=== PATIENT | female | born 1995 | race Caucasian/White ===

== ENCOUNTER 2018-03-25 12:50 | Inpatient (IN) ==
[2018-03-25] MEDS ORDERED: Famotidine 20 MG/2 ML VIAL IVP PRN (13:06)
[2018-03-25] MEDS ORDERED: Naloxone 0.4 MG/ML INJ IVP PRN (13:06)
[2018-03-25] MEDS ORDERED: *HR* Nalbuphine 10 MG/ML AMPUL IVP PRN (13:06)
[2018-03-25] MEDS ORDERED: Metoclopramide 10 MG/2 ML VIAL IVP PRN (13:07)
[2018-03-25] MEDS ORDERED: Ondansetron 4 MG/2 ML VIAL IVP PRN (13:07)
[2018-03-25] MEDS ORDERED: Ringers Solution, Lactated 1,000 ML IVC SCH (13:15)
[2018-03-25] MEDS ORDERED: miSOPROStol 25 MCG TABLET PO PRN (13:59)
[2018-03-25] MEDS ORDERED: EPHEDrine 50 MG/ML VIAL IVP PRN (14:04)
--- NOTE | 2018-03-25 14:04 | Anesthesia Evaluation PreOp ---
Date of Encounter: 03/25/18 Time of Encounter: 14:01 - Past History Planned Operation: vaginal del, G1 induction Cardiac History: Denies any Significant Hx Pulmonary History: Denies Any Significant HX ACCOUNT MANAGER TRAINEE History: Denies Any Significant HX Other Medical History: GERD, Other (mild scolosis reported, denies radiculopathy ) Anesthesia History: No Prior Anesthetic Complications, Past Anesthesia Alcohol Use: none Drug use: none Medications and Allergies Esomeprazole Magnesium [Nexium 24Hr] 20 mg PO DAILY 03/25/18 [History] 3 Allergy/AdvReac Type Severity Reaction Status Date / Time No Known Allergies Allergy Verified 08/06/16 06:10 Anesthesia Exam - HEENT Pupil (Motor): Pupils equal Mallampati: II Teeth: Normal Oral Opening: Greater than 3 - ACCOUNT MANAGER TRAINEE LOC: Oriented ACCOUNT MANAGER TRAINEE Motor: Normal RUE, Normal LUE, Normal RLE, Normal LLE, Normal Face ACCOUNT MANAGER TRAINEE Sensory: Normal: RUE, LUE, RLE, LLE, Face - Cardiac Rhythm: Regular Murmur: None - Pulmonary Breath Sounds: bilateral Clear Respiratory Effort: Symmetrical Anesthesia Assess/Plan ASA Score: 2 Modified [place] Scale for Level of Consciousness: Cooperative, oriented, and tranquil Anesthetic Plan: General, Regional Monitoring Plan: Standard Monitors Recovery Plan: PACU
[2018-03-25 14:07] LABS: Basophils % 0.4 %; Eosinophils % 0.4 %; Hemoglobin 12.8 g/dL (11.5-15.4); Immature Granulocytes % 0.6 % (0-4); Lymphocytes # 1.6 K/mcL (0.6-4.6); Lymphocytes % 14.9 %; Mean Corpuscular HGB Conc 33.7 g/dL (31.6-35.5); Mean Corpuscular Hemoglobin 28.6 pg (28.0-33.3); Mean Platelet Volume 10.4 fL (9.4-12.4); Monocytes # 0.7 K/mcL (0.0-1.3); Monocytes % 6.5 %; Neutrophils # 8.2 K/mcL (1.6-8.9); Platelet Count 263 K/mcL (140-400); Red Blood Count 4.47 M/mcL (3.82-4.97); Red Cell Distribution Width 13.9 % (11.5-14.5); Segmented Neutrophils % 77.2 %
[2018-03-25] MEDS ORDERED: Epidural Premix (fent/bupiv) 110 ML EP SCH (14:15)
[2018-03-25] MEDS ORDERED: Epidural Premix (fent/bupiv) 110 ML EP ONE (14:17)
[2018-03-25] MEDS ORDERED: Lidocaine -MPF 2% 5 ML VIAL ONE (14:19)
[2018-03-25 14:25] LABS: Amphetamine Screen,Urine Negative ng/mL (Cutoff=1000); Barbiturate Screen,Urine Negative ng/mL (Cutoff=200); Benzodiazepines Screen,Urine Negative ng/mL (Cutoff=200); Cannabinoid Screen,Urine Negative ng/mL (Cutoff = 50); Cocaine Screen,Urine Negative ng/mL (Cutoff= 300); Opiate Screen,Urine Negative ng/mL (Cutoff=300); Phencyclidine Screen,Urine Negative ng/mL (Cutoff=25)
[2018-03-25] MEDS ORDERED: Oxytocin 20 units/ LR 1000 mL 20 UNIT/1,000 ML BAG IVC SCH (15:15)
--- NOTE | 2018-03-25 18:52 | OB/GYN History & Physical ---
Date of Encounter: 03/25/18 Time of Encounter: 18:00 Assessment and Plan (1) 39 weeks gestation of Current visit: Yes Status: Acute (2) Polyhydramnios affecting in third trimester Current visit: Yes Status: Acute Plan for induction of labor with IV pitocin started early this afternoon. Now AROM with clear fluid and IUPC placement. Continue to monitor and increase pitocin as needed in anticipation of vaginal delivery. (3) LGA (large for gestational age) fetus Current visit: Yes Status: Acute History of Present Illness Chief complaint: induction of labor HPI: Ms. Lino is a 22 year old female G1 39 2/7 weeks presents for induction of labor for polyhydramnios at term. She denies any contractions, vaginal bleeding , or leaking fluid prior to admission. She reports good movement. She denies any complications. Past Med Surg Social Fam HX - Past Medical History Source: patient Medical history: other Additional medical history: pnuemonia with chest tubes as a child Psychiatric history: no psych history - Past Surgical History Surgical History: no surgical history - Social History Smoking Status: Never smoker Smokeless Tobacco Status: No Alcohol use: none Drug use: none Occupational status: employed - Family History Mother Living Status: Still Living Hx Family Cardiac Disorders: No Hx Family Respiratory Disorders: Yes (collapsed lung) Hx Family Cancer: No Hx Family GI Disorders: No Hx Family Genitourinary Disorders: No Hx Family Endocrine Disorder: No Hx Family Musculoskeletal Disorders: No Hx Family Neuromuscular Disorders: No Hx Family Neurologic Disorders: No Hx Family HEENT Disorders: No Hx Family Autoimmune Disorders: No Hx Family Reproductive Disorders: Yes (hysterectomy) Hx Family Psychosocial Disorders: No Hx Family Medical Disorders: No Obstetrical History - Pregnancies : 1 Medications and Allergies Esomeprazole Magnesium [Nexium 24Hr] 20 mg PO DAILY 03/25/18 [History] 3 Allergy/AdvReac Type Severity Reaction Status Date / Time No Known Allergies Allergy Verified 08/06/16 06:10 Review of System OB All systems PM: reviewed and no additional remarkable complaints except as stated - Constitutional Constitutional ROS IM: no fever(s), no headache(s) - Cardiovascular Cardiovascular: no chest pain at rest, no orthopnea - Respiratory Respiratory: no dyspnea, no wheezing - Gastrointestinal Gastrointestinal: constipation, heartburn, no nausea - Menstruation Menstruation: amenorrhea Exam - Constitutional Constitutional: well developed, well nourished, no acute distress, average body habitus - Neck Neck exam: full ROM - Lungs Respiratory exam: CTAB - Cardiovascular Cardiovascular exam: RRR - Abdomen Abdomen: Present: bowel sounds normal, gravid, non tender - Vulva Vulva: bilateral: normal - Vagina Vagina: Present: normal moisture - Cervix Dilation: 4 Effacement: 75 Station: -3 - Comments Comments: AROM with clear fluid. IUPC placed without difficulty FHT's 130's, category 1, scalp stim noted with exam. [place] ctx q 1-2 minutes Results Result Diagrams: 03/25/18 13:47 All other labs normal. US - abdomen: image reviewed (Ultrasound on 03/18 with EFW 3839 gm and JAIME 26.89 cm cephalic) - VTE Reasons for not Prescribing Prophylaxis: Treatment not Indicated - Low risk for VTE
[2018-03-25] MEDS ORDERED: Mag Hydrox/Al Hydrox/Simeth 30 ML UDC PO PRN (20:32)
--- NOTE | 2018-03-25 22:05 | Anesthesia Procedures ---
Date of Encounter: 03/25/18 Time of Encounter: 21:49 Procedures: Anesthesia - Epidural/Spinal Patient ID/Chart reviewed: Yes Patient examined: Yes OB Eval: Gestational age: term OB Eval: : 1 OB Eval: Contractions: Non-stressed pattern Consent Obtained: Yes Supplemental Oxygen: None/Room Air Site Prep: Aseptic Technique, Sterile prep and drape, 0.5% Chlorhexidine/Alcohol Patient position: upright Local Anesthetic: Lidocaine 1% Amount of Local Anesthetic used: 2 Touhy Needle Gauge: 18 Touhy Needle Depth (cm): 7 Catheter Depth at Skin (cm): 11 Test Dose (1.5% Lido + Epi): Volume given (mls): 3 Test Dose Result: Negative Loading Dose: Other: 12ml from solution Loading Dose Administered: Thru Catheter Infusion Med: 0.125% Bupivacaine w/ 2 mcg/ml Fentanyl Infusion Rate (mls/hr): [address]: Tegaderm, Tape Interspace Used: L3-L4 Loss of Resistance (IRIS): Yes (saline) Blood: No CSF: No Paresthesia: No Procedure: vss though out procedure, fhr via rn's stable
[2018-03-26] MEDS ORDERED: Oxytocin 20 units/ LR 1000 mL 20 UNIT/1,000 ML BAG IVC ONE (14:46)
[2018-03-26] MEDS ORDERED: Rho Immune Globulin 1,500 UNIT SYRINGE IM PRN ×2 (14:46→15:42)
[2018-03-26] MEDS ORDERED: Measles/Mumps/Rubella Vacc 0.5 ML VIAL SQ PRN ×2 (14:46→15:42)
[2018-03-26] MEDS ORDERED: Acetaminophen 325 MG TABLET PO PRN ×2 (14:46→15:42)
--- NOTE | 2018-03-26 14:56 | OB/GYN Procedure Note ---
Delivery - Delivery Date: 03/26/18 Provider: Everardo Livingston Intrapartum events: prolonged 2nd stage>2.5hr Delivery induction: AROM, oxytocin Delivery monitor: external FHT, external uterine Anesthesia: epidural Quantitated Blood Loss: 250 - (s) Infant A Infant Delivery Date: 03/26/18 Infant Delivery Time: 13:23 Presentation: vertex Position: JOEL Route of delivery: vacuum extraction Gender: Female Viability: Viable Pounds: 8 Ounces: 7 at 1 minute: 7 at 5 mins: 9 Shoulder Dystocia: not encountered Specimens collected: cord blood Placenta: spontaneous Cord: 3 umbilical vessels - Repair Episiotomy: none Laceration Description: Perineal - 3rd Degree - Complications Delivery complications: none - Disposition Mom disposition: stable in LDR [place] disposition: stable in LDR - Comments Comments: Patient progressed to complete dilatation and +3 station begin having deep variable decelerations that were prolonged she was also developing some tachycardia that she did have kidney [id number] variability. We did discuss with patient options of vacuum application with associated risks of infection, damage to scalp, hematoma formation and vaginal wall trauma versus proceeding with primary section. Patient strongly desires not desire section and did agree to vacuum application. Visible consent was obtained. Packing was applied a total of 2 times and infant was delivered from left occiput anterior presentation peritoneum application strength was 550 mmHg and total vacuum application time was 52 seconds. Infant was delivered from left occiput anterior presentation without difficulty. There was a nuchal cord 1 which was reduced during delivery. Cord was clamped and cut and infant was handed nurse personnel who were in attendance on patient's abdomen. Placenta was delivered spontaneously without difficulty. There was a social third degree laceration repaired with 2-0 and 3-0 Vicryl under epidural anesthesia.terms of third-degree laceration there was actually minimal tearing of the capsule of the muscle. Blood loss was 100 cc, mother and recovered in labor and delivery .
[2018-03-26] MEDS ORDERED: Oxytocin 20 units/ LR 1000 mL 20 UNIT/1,000 ML BAG IVC SCH ×2 (15:00→15:42)
[2018-03-26] MEDS ORDERED: *HR* HYDROcodone/Acet 5/325 mg TABLET PO PRN (17:14)
[2018-03-26] MEDS: Ibuprofen 600 MG TABLET PO PRN (17:24)
[2018-03-26] MEDS ORDERED: Benzocaine/Menthol 56 GM AEROSOL SPRAY TP PRN (21:07)
[2018-03-27 06:44] LABS: Basophils # 0.1 K/mcL (0.0-0.2); Basophils % 0.3 %; Eosinophils # 0.1 K/mcL (0.0-0.6); Eosinophils % 0.6 %; Hematocrit 24.8 % (35.3-44.9); Immature Granulocytes % 0.7 % (0-4); Lymphocytes # 2.3 K/mcL (0.6-4.6); Lymphocytes % 14.2 %; Mean Corpuscular HGB Conc 32.7 g/dL (31.6-35.5); Mean Corpuscular Hemoglobin 28.1 pg (28.0-33.3); Mean Corpuscular Volume 86.1 fL (83.0-100.0); Mean Platelet Volume 9.9 fL (9.4-12.4); Monocytes # 1.3 K/mcL (0.0-1.3); Monocytes % 7.9 %; Neutrophils # 12.4 K/mcL (1.6-8.9); Platelet Count 214 K/mcL (140-400); Red Blood Count 2.88 M/mcL (3.82-4.97); Red Cell Distribution Width 14.4 % (11.5-14.5); Segmented Neutrophils % 76.3 %
[2018-03-27 06:45] LABS: Hemoglobin 8.1 g/dL (11.5-15.4)
[2018-03-27 07:53] VITALS: BP 100/68
[2018-03-27] MEDS: Ibuprofen 600 MG TABLET PO PRN ×2 (07:57→13:32)
[2018-03-27] MEDS ORDERED: Prenatal Vit/FA 1 EACH TABLET PO SCH ×2 (09:00)
--- NOTE | 2018-03-27 10:33 | Discharge Summary ---
Date of Encounter: 03/27/18 Time of Encounter: 10:30 - Discharge Diagnosis (1) 39 weeks gestation of Priority: Secondary Status: Resolved (2) Polyhydramnios affecting in third trimester Priority: Primary Status: Resolved (3) LGA (large for gestational age) fetus Priority: Secondary Status: Resolved (4) Vaginal delivery Priority: Primary Status: Acute Comments: PPD 1 (5) Anemia Priority: Secondary Status: Acute Comments: Patient is asymptomatic with normal vital signs. She is ambulating in the room without dizziness, lightheadedness, dyspnea, or tachycaria. Suspect anemia to be partially dilution and also accounted to the blood loss from the delivery and the third degree laceration. She states her bleeding is minimal and confirmed with nursing. She is stable for discharge home with bleeding precautions. Qualifiers: Other causes of anemia: other cause, not classified Qualified Code(s): D64.89 - Other specified anemias - Discharge Medications Home Medications: Esomeprazole Magnesium [Nexium 24Hr] 20 mg PO DAILY 03/25/18 [History] Acetaminophen [Tylenol] 650 mg PO Q6HR PRN tablet 03/27/18 [Rx] Benzocaine/Menthol [place] [Dermoplast [place]] 1 appl TP QID PRN aerosol 03/27/18 [Rx] Ibuprofen [Motrin] 600 mg PO Q6HR PRN tablet 03/27/18 [Rx] Allergies/Adverse Reactions: 3 Allergy/AdvReac Type Severity Reaction Status Date / Time No Known Allergies Allergy Verified 08/06/16 06:10 Data Procedures and tests throughout hospitalization: Laboratory Tests 03/25/18 03/25/18 03/27/18 13:47 13:47 06:33 WBC 10.7 16.2 H D RBC 4.47 2.88 L Hgb 12.8 8.1 L D Hct 38.0 24.8 L MCV 85.0 86.1 MCH 28.6 28.1 MCHC 33.7 32.7 RDW 13.9 14.4 Plt Count 263 214 MPV 10.4 9.9 Immature Gran % 0.6 0.7 Seg Neutrophils % 77.2 76.3 Lymphocytes % 14.9 14.2 Monocytes % 6.5 7.9 Eosinophils % 0.4 0.6 Basophils % 0.4 0.3 Neutrophils # 8.2 12.4 H Lymphocytes # 1.6 2.3 Monocytes # 0.7 1.3 Eosinophils # 0.0 0.1 Basophils # 0.0 0.1 Urine Opiates Screen Negative Ur Barbiturates Screen Negative Ur Phencyclidine Scrn Negative Ur Amphetamines Screen Negative U Benzodiazepines Scrn Negative Urine Cocaine Screen Negative U Marijuana (THC) Screen Negative Ur Drug Screen Interp See Below Labs on day of discharge: Labs from last 24 hours 03/27/18 06:33 WBC 16.2 H D RBC 2.88 L Hgb 8.1 L D Hct 24.8 L MCV 86.1 MCH 28.1 MCHC 32.7 RDW 14.4 Plt Count 214 MPV 9.9 Immature Gran % 0.7 Seg Neutrophils % 76.3 Lymphocytes % 14.2 Monocytes % 7.9 Eosinophils % 0.6 Basophils % 0.3 Neutrophils # 12.4 H Lymphocytes # 2.3 Monocytes # 1.3 Eosinophils # 0.1 Basophils # 0.1 Date of admission: 03/25/18 12:50 Primary care physician: Magui Aguilar Consults: 03/26/18 15:42 Consult to Senior Clinician [CONS] Routine Comment: Vaginal delivery, consult needed Discharging clinician: Terri Mercedes Anticipated date of discharge: 03/27/18 - Patient Status Disposition: Home, Self-Care Condition: Good Functional capacity at discharge: independent ambulation Overall status at discharge: patient is progressing back to baseline - Discharge Instructions Follow Up With: Manuel Ortega MD [Partnered Physician] - - Diet and Activity Activity: resume usual activities as tolerated Diet: advance to your usual diet Hospital Course Reason for admission: induction of labor, IUP at term Delivery: vacuum extraction Episiotomy: none Laceration: 3rd degree Other procedures: none complications: none Discharge diagnosis: IUP at term delivered baby: female Time Attestation: Total time spent providing and/or coordinating discharge services: Time Spent: Less than 30 minutes Exam - Constitutional Vitals: Temp Pulse Resp BP Pulse Ox 97.9 F 100 16 100/68 100 03/27/18 07:51 03/27/18 07:51 03/27/18 07:51 03/27/18 07:51 03/27/18 07:51 General appearance IM: A&O X 3, no acute distress - Respiratory Respiratory exam: Present: CTAB. Absent: respiratory distress - Cardiovascular Cardiovascular exam IM: Present: RRR. Absent: irregular rhythm - GI/Abdominal GI/Abdominal exam IM: normal bowel sounds - Uterine Tone: Firm - Extremities Exam Extremities exam IM: Present: pedal edema. Absent: calf tenderness - Neurological Exam Neurological exam: normal gait
== END 2018-03-27 15:33 | disposition home or self-care (01) | DRG 775 ==
LOC: 1NENULAB 12:50 → 1NENUOBS 03-26 15:42
PROVIDERS: ADMIT Obstetrics & Gynecology; ATTEND Obstetrics & Gynecology